=== PATIENT | female | born 1975 | race Asian ===

== ENCOUNTER 2016-02-25 01:07 | Inpatient (IN) | payer OTHER, MEDICAID ==
[2016-02-25] MEDS ORDERED: LACTATED RINGERS 1,000 ML IV SCH ×3 (02:00→05:00)
[2016-02-25] MEDS ORDERED: AMPICILLIN 2 GM in SODIUM CHLORIDE 0.9% MINIBAG 100 ML IV SCH (02:00)
[2016-02-25] MEDS ORDERED: SODIUM CHLORIDE FLUSH 0.9% 10 ML SYRINGE IVP ONE ×2 (02:10→16:25)
[2016-02-25] MEDS ORDERED: CITRIC ACID/SODIUM CITRATE 15 ML UDC PO SCH (02:54)
[2016-02-25] MEDS ORDERED: ceFAZolin 2 GM/50 ML 50 ML IV ONE (03:12)
[2016-02-25] MEDS ORDERED: LACTATED RINGERS 1,000 ML IV ONE ×2 (03:55→03:56)
[2016-02-25] MEDS ORDERED: MORPHINE PF 5 MG/10 ML AMP EP ONE (04:20)
[2016-02-25] MEDS ORDERED: ONDANSETRON 4 MG/2 ML VIAL IVP ONE (04:20)
[2016-02-25] MEDS ORDERED: fentaNYL 100 MCG/2 ML VIAL IVP ONE (04:20)
[2016-02-25] MEDS ORDERED: ACETAMINOPHEN 1,000 MG/100 ML VIAL IV ONE (04:20)
[2016-02-25] MEDS ORDERED: OXYTOCIN 10 UNIT/ML VIAL IV ONE (04:20)
[2016-02-25] MEDS ORDERED: PHENYLEPHRINE 10 MG/ML VIAL IV ONE (04:20)
[2016-02-25] MEDS ORDERED: BUPIVACAINE 0.25%-EPI 1:200000 PF 30 ML VIAL SUBQ ONE (04:32)
[2016-02-25] MEDS ORDERED: ONDANSETRON 4 MG/2 ML VIAL IVP PRN (04:49)
[2016-02-25] MEDS ORDERED: diphenhydrAMINE INJ 50 MG/ML VIAL IVP PRN (04:49)
[2016-02-25] MEDS ORDERED: oxyCOD/ACETAMIN 5 MG/325 MG TABLET PO PRN (04:49)
[2016-02-25] MEDS: OXYTOCIN/LACTATED RINGERS 250 ML IV SCH ×2 (05:49→10:39)
[2016-02-25] MEDS: ACETAMINOPHEN 500 MG TABLET PO SCH ×3 (09:48→22:04)
[2016-02-25] MEDS: DOCUSATE SODIUM 100 MG CAPSULE PO SCH ×2 (10:34→21:19)
[2016-02-25] MEDS: SIMETHICONE CHEW 80 MG TABLET PO SCH ×3 (13:45→21:19)
[2016-02-25] MEDS: oxyCODONE 5 MG TABLET PO PRN ×2 (17:40→23:56)
[2016-02-26] MEDS: oxyCODONE 5 MG TABLET PO PRN ×5 (04:05→21:53)
[2016-02-26] MEDS: ACETAMINOPHEN 500 MG TABLET PO SCH ×3 (06:16→21:52)
[2016-02-26] MEDS: DOCUSATE SODIUM 100 MG CAPSULE PO SCH ×2 (09:46→20:54)
[2016-02-26] MEDS: SIMETHICONE CHEW 80 MG TABLET PO SCH ×3 (09:46→18:08)
[2016-02-27] MEDS: oxyCODONE 5 MG TABLET PO PRN ×5 (04:25→20:56)
[2016-02-27] MEDS: ACETAMINOPHEN 500 MG TABLET PO SCH ×3 (06:08→19:25)
[2016-02-27] MEDS: DOCUSATE SODIUM 100 MG CAPSULE PO SCH ×2 (08:25→20:55)
[2016-02-27] MEDS: SIMETHICONE CHEW 80 MG TABLET PO SCH ×5 (08:26→20:56)
[2016-02-28] MEDS: oxyCODONE 5 MG TABLET PO PRN ×5 (01:56→19:42)
[2016-02-28] MEDS: ACETAMINOPHEN 500 MG TABLET PO SCH ×3 (03:47→20:01)
[2016-02-28] MEDS: DOCUSATE SODIUM 100 MG CAPSULE PO SCH ×2 (09:07→20:01)
[2016-02-28] MEDS: SIMETHICONE CHEW 80 MG TABLET PO SCH ×3 (09:07→19:43)
[2016-02-29] MEDS: SIMETHICONE CHEW 80 MG TABLET PO SCH ×2 (03:50→08:59)
[2016-02-29] MEDS: oxyCODONE 5 MG TABLET PO PRN ×2 (03:50→08:58)
[2016-02-29] MEDS: ACETAMINOPHEN 500 MG TABLET PO SCH (04:49)
[2016-02-29] MEDS: DOCUSATE SODIUM 100 MG CAPSULE PO SCH (08:59)
== END 2016-02-29 11:20 | disposition home or self-care (01) | DRG 766 ==
PROC: 10D00Z1 Extraction of Products of Conception, Low, Open Approach (ICD-10-PCS; principal; 2016-02-25 02:57)
DX: O42.92 Full-term premature rupture of membranes, unspecified as to length of time between rupture and onset of labor (principal); Z37.0 Single live birth; O34.211 Maternal care for low transverse scar from previous cesarean delivery; N85.8 Other specified noninflammatory disorders of uterus; O99.824 Streptococcus B carrier state complicating childbirth; Z3A.37 37 weeks gestation of pregnancy; Z88.8 Allergy status to other drugs, medicaments and biological substances

== ENCOUNTER 2017-05-18 08:24 | Outpatient (CLI) | payer MEDICAID ==
--- NOTE | 2017-05-19 11:29 | Mammography Report ---
DIGITAL SCREENING MAMMOGRAM: 05/18/2017 CLINICAL INDICATION: A 41-year-old with history of late childbearing, for baseline. TECHNIQUE: Routine CC and MLO projections were obtained of the breasts. Bilateral laterally exaggerated craniocaudal views. FINDINGS: The breasts demonstrate heterogeneously dense fibroglandular parenchyma bilaterally. A few punctate, typically benign calcifications are present. No suspicious masses, clustered microcalcifications, or regions of architectural distortion are identified. IMPRESSION: BENIGN FINDINGS. RECOMMENDATION: ROUTINE ANNUAL SCREENING UNLESS OTHERWISE CLINICALLY INDICATED. BIRADS CATEGORY 2-BENIGN FINDINGS. STANDARD QUALIFYING STATEMENTS: 1. This examination was reviewed with the aid of Computer-Aided Detection (CAD). 2. A negative or benign imaging report should not delay biopsy if clinically suspicious findings are present. Consider surgical consultation if warranted. More than 5% of cancers are not identified by imaging. 3. Dense breasts may obscure an underlying neoplasm. TD: 05/19/2017 11:28
== END 2017-05-18 08:25 | disposition home or self-care (01) ==
LOC: DI.N 08:24
PROVIDERS: ATTEND Registered Nurse
DX: Z12.31 Encounter for screening mammogram for malignant neoplasm of breast (principal)
CPT/HCPCS: 77067

== ENCOUNTER 2017-07-10 15:01 | Outpatient (CLI) | payer MEDICAID ==
[2017-07-18 11:11] LABS: HSV 2 DNA NOT DETECTED; SOURCE VAGINAL LESION
== END 2017-07-10 23:59 ==
LOC: LAB.R 15:01
PROVIDERS: ATTEND Nurse Practitioner Obstetrics & Gynecology
DX: N76.6 Ulceration of vulva (principal); N76.0 Acute vaginitis
CPT/HCPCS: 86695; 86696; 87480; 87510; 87529; 87660

== ENCOUNTER 2017-07-13 08:21 | Outpatient (CLI) | payer MEDICAID ==
--- NOTE | 2017-07-13 12:06 | XRAY Report ---
THREE VIEW LEFT MIDDLE FINGER: 07/13/2017 CLINICAL INDICATION: Pain. FINDINGS: AP, lateral, oblique views of the left middle finger demonstrate no evidence of fracture or dislocation. The joint spaces are preserved. No radiopaque foreign body is seen in the soft tissues. IMPRESSION: NORMAL LEFT MIDDLE FINGER. TD: 07/13/2017 11:37
== END 2017-07-13 08:22 | disposition home or self-care (01) ==
LOC: DI.N 08:21
PROVIDERS: ATTEND Nurse Practitioner
DX: M79.645 Pain in left finger(s) (principal)
CPT/HCPCS: 73140

== ENCOUNTER 2017-07-28 16:50 | Emergency (ER) | payer MEDICAID ==
[2017-07-28] MEDS ORDERED: SODIUM CHLORIDE 0.9% 1,000 ML IV ONE (17:11)
--- NOTE | 2017-07-28 17:11 | ED Physician Documentation ---
History of Present Illness - Stated complaint Stated Complaint: DIZZY/LIGHTHEADED - Chief complaint Chief Complaint: Cardiac - History obtained from History obtained from: Patient - History of Present Illness Timing: How many weeks ago (several) Pain level max: 0 Pain level now: 0 Improved by: nothing Worsened by: nothing - Additonal information Additional information: Patient is a 41-year-old female who presents to the emergency department stating that she feels intermittently lightheaded for the past several weeks. States these episodes last for 1-2 seconds at a time. Today they happened more consistently so she came for evaluation. Has not seen her doctor for this. Is not on any new medications. States occasionally drinks caffeine but not daily. States currently feels normal. Review of Systems Constitutional: denies: Fever, Chills Nose: denies: Rhinorrhea / runny nose Throat: denies: Sore throat Cardiac: reports: Palpitations (occasional). denies: Chest pain / pressure Respiratory: denies: Dyspnea, Cough GI: reports: Diarrhea. 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 - Present Medications Home Medications: Ambulatory Orders Medication Instructions Recorded Confirmed No Known Home Medications [No 09/19/15 07/28/17 Known Home Medications] - Allergies Allergies/Adverse Reactions: Allergies Allergy/AdvReac Type Severity Reaction Status Date / Time ibuprofen Allergy Mild Respiratory Verified 07/28/17 17:01 - Social History Does the pt smoke?: No Smoking Status: Never smoker Does the pt drink ETOH?: No Does the pt have substance abuse?: No - Immunizations Immunizations are current?: Yes PD ED PE NORMAL - Vitals Vital signs reviewed: Yes - General General: Alert and oriented X 3, No acute distress - HEENT HEENT: PERRL, EOMI (no nystagmus), Ears normal, Pharynx benign, Other (dry lips) - Neck Neck: Supple, no meningeal sign - Cardiac Cardiac: RRR, Strong equal pulses - Respiratory Respiratory: No respiratory distress, Clear bilaterally - Abdomen Abdomen: Soft, Non tender, Non distended - Back Back: No spinal TTP - Derm Derm: Warm and dry - Extremities Extremities: No edema, No calf tenderness / cord - Neuro Neuro: Alert and oriented X 3 - Psych Psych: Normal mood, Normal affect Results - Vitals Vitals: Vital Signs - 24 hr 07/28/17 07/28/17 07/28/17 16:58 17:33 18:26 Temperature 36.6 C 36.5 C Heart Rate 84 93 88 Respiratory 18 16 18 Rate Blood Pressure 157/92 H 153/91 H 148/88 H O2 Saturation 99 100 100 Oxygen O2 Source Room air - EKG (time done) 1704 Rate: Rate (enter#) (73) Rhythm: NSR [place]: Normal Intervals: Normal CT QRS: Normal Ischemia: Normal ST segments Computer interpretation: Agree with computer - Labs Labs: Laboratory Tests 07/28/17 07/28/17 07/28/17 17:15 17:15 17:15 WBC 6.0 RBC 4.20 Hgb 12.9 Hct 38.0 MCV 90.5 MCH 30.8 MCHC 34.1 RDW 12.8 Plt Count 274 MPV 6.9 L Neut # (Auto) 3.0 Lymph # (Auto) 2.4 [place] # (Auto) 0.4 Eos # (Auto) 0.3 Baso # (Auto) 0.0 Absolute Nucleated RBC 0.00 Nucleated RBC % 0.0 Sodium 135 Potassium 3.3 L Chloride 101 Carbon Dioxide 25 Anion Gap 9.0 BUN 18 Creatinine 0.6 Estimated GFR (MDRD) 110 Glucose 94 Calcium 9.1 Total Bilirubin 0.4 AST 19 ALT 15 Alkaline Phosphatase 34 L Troponin I < 0.04 Total Protein 7.5 Albumin 3.9 Globulin 3.6 Albumin/Globulin Ratio 1.1 Lipase 25 TSH Free T4 Urine Color Urine Clarity Urine pH Ur Specific [place] Urine Protein Urine Glucose (UA) Urine Ketones Urine Occult Blood Urine Nitrite Urine Bilirubin Urine Urobilinogen Ur Leukocyte Esterase Ur Microscopic Review Urine Culture Comments Urine HCG, Qual 07/28/17 07/28/17 17:15 17:42 WBC RBC Hgb Hct MCV MCH MCHC RDW Plt Count MPV Neut # (Auto) Lymph # (Auto) [place] # (Auto) Eos # (Auto) Baso # (Auto) Absolute Nucleated RBC Nucleated RBC % Sodium Potassium Chloride Carbon Dioxide Anion Gap BUN Creatinine Estimated GFR (MDRD) Glucose Calcium Total Bilirubin AST ALT Alkaline Phosphatase Troponin I Total Protein Albumin Globulin Albumin/Globulin Ratio Lipase TSH 2.43 Free T4 0.70 Urine Color YELLOW Urine Clarity CLEAR Urine pH 6.5 Ur Specific [place] 1.015 Urine Protein NEGATIVE Urine Glucose (UA) NEGATIVE Urine Ketones NEGATIVE Urine Occult Blood NEGATIVE Urine Nitrite NEGATIVE Urine Bilirubin NEGATIVE Urine Urobilinogen 0.2 (NORMAL) Ur Leukocyte Esterase NEGATIVE Ur Microscopic Review NOT INDICATED Urine Culture Comments NOT INDICATED Urine HCG, Qual NEGATIVE PD MEDICAL DECISION MAKING - ED course Complexity details: reviewed results, re-evaluated patient, considered differential, d/w patient ED course: Patient is a 41-year-old female with intermittent palpitations for the past several weeks. No acute findings on telemetry in the emergency department. She feels better after IV fluids. No acute laboratory abnormalities. Recommend that she follow-up with her doctor for an event monitor. Normal EKG. Ambulating with a steady gait. No evidence of pulmonary embolus, acute coronary syndrome. Patient counseled regarding signs and symptoms for which I believe and urgent re-evaluation would be necessary. Patient with good understanding of and agreement to plan and is comfortable going home at this time This document was made in part using voice recognition software. While efforts are made to proofread this document, sound alike and grammatical errors may occur. - Sepsis Event Vital Signs: Vital Signs - 24 hr 07/28/17 07/28/17 07/28/17 16:58 17:33 18:26 Temperature 36.6 C 36.5 C Heart Rate 84 93 88 Respiratory 18 16 18 Rate Blood Pressure 157/92 H 153/91 H 148/88 H O2 Saturation 99 100 100 Oxygen O2 Source Room air Departure - Departure Disposition: 01 Home, Self Care Clinical Impression: Lightheadedness, Palpitations Condition: Good Instructions: ED Palpitations Follow-Up: your,doctor in 1 week [Other] Comments: The cause of your symptoms is unclear today. It is important that you follow- up with your doctor for further evaluation and care. You may benefit from a ekg monitor tech to monitor your heart so when the symptoms occur we can track them on telemetry. your doctor can order this for you. Your telemetry did not show any acute abnormalities today. Discharge Date/Time: 07/28/17 18:24
[2017-07-28 17:35] LABS: BASOPHILS % (AUTO) 0.7 %; EOSINOPHILS # (AUTO) 0.3 10^3/uL (0.0-0.7); EOSINOPHILS % (AUTO) 4.4 %; HGB - HEMOGLOBIN 12.9 g/dL (12.0-16.0); LYMPHOCYTES # (AUTO) 2.4 10^3/uL (1.5-3.5); LYMPHOCYTES % (AUTO) 39.6 %; MEAN CORPUSCULAR HEMOGLOBIN 30.8 pg (27.0-31.0); MEAN CORPUSCULAR HGB CONC 34.1 g/dL (32.0-36.0); MEAN CORPUSCULAR VOLUME 90.5 fL (81.0-99.0); MEAN PLATELET VOLUME 6.9 fL (7.9-10.8); MONOCYTES # (AUTO) 0.4 10^3/uL (0.0-1.0); NEUTROPHILS % (AUTO) 49.3 %; PLT - PLATELET COUNT 274 10^3/uL (130-450); RED CELL DISTRIBUTION WIDTH 12.8 % (12.0-15.0)
[2017-07-28 17:45] LABS: ALBUMIN 3.9 g/dL (3.2-5.5); ALBUMIN/GLOBULIN RATIO 1.1 (1.0-2.2); BILIRUBIN,TOTAL 0.4 mg/dL (0.2-1.0); CALCIUM 9.1 mg/dL (8.5-10.3); CREATININE 0.6 mg/dL (0.4-1.0); TOTAL PROTEIN 7.5 g/dL (6.7-8.2)
[2017-07-28 17:52] LABS: BILIRUBIN,URINE NEGATIVE (NEGATIVE); GLUCOSE, URINE (UA) NEGATIVE (NEGATIVE); KETONES,URINE (UA) NEGATIVE (NEGATIVE); LEUKOCYTE ESTERASE, URINE NEGATIVE (NEGATIVE); NITRITE,URINE NEGATIVE (NEGATIVE); OCCULT BLOOD,URINE NEGATIVE (NEGATIVE); PH,URINE 6.5 PH (5.0-7.5); PROTEIN,URINE NEGATIVE (NEGATIVE); UROBILINOGEN,URINE 0.2 (NORMAL) E.U./dL (NORMAL)
[2017-07-28 17:55] LABS: CLARITY,URINE CLEAR (CLEAR); HCG UR QUAL NEGATIVE
[2017-07-28 18:04] LABS: THYROID STIMULATING HORMONE 2.43 uIU/mL (0.34-5.60)
[2017-07-28 18:06] LABS: FREE T4 (FREE THYROXINE) 0.7 ng/dL (0.58-1.64)
[2017-07-28 18:28] VITALS: BP 148/88
== END 2017-07-28 18:24 | disposition home or self-care (01) ==
LOC: ED 16:50
DX: R42 Dizziness and giddiness (principal); R00.2 Palpitations; R19.7 Diarrhea, unspecified
CPT/HCPCS: 36415; 80053; 81001; 81003; 81025; 83690; 84439; 84443; 84484; 85025; 87086; 93005; 96360; 99283; 99284

== ENCOUNTER 2017-08-10 08:13 | Outpatient (CLI) | payer MEDICAID ==
[2017-08-10 12:50] LABS: CREATININE 0.5 mg/dL (0.4-1.0)
== END 2017-08-10 08:14 | disposition home or self-care (01) ==
LOC: LAB.N 08:13
PROVIDERS: ATTEND Nurse Practitioner
DX: E87.6 Hypokalemia (principal)
CPT/HCPCS: 36415; 80048

== ENCOUNTER → 2017-08-11 | Outpatient (CLI) | payer MEDICAID | LOC: RT.N 09:13 | PROVIDERS: ATTEND Nurse Practitioner | DX: R42 Dizziness and giddiness (principal); R00.2 Palpitations | CPT/HCPCS: 93005 ==

== ENCOUNTER 2017-09-29 10:19 | Emergency (ER) | payer MEDICAID ==
--- NOTE | 2017-09-29 12:11 | ED Physician Documentation ---
PD HPI FOCAL NEURO - Stated complaint Stated Complaint: LT UPPER LIP NUMBNESS - Chief complaint Chief Complaint: General - History obtained from History obtained from: Patient - History of Present Illness Timing - onset: Yesterday (Since yesterday she has had numbness focused on the left face around the upper lip, but involves everything from the forehead down to the jawline. She also notes partial numbness of the fourth and fifth fingers of the hand on the same side. She denies weakness. She notes for the last couple of months she has had intermittent dizziness which she describes as feeling like she is walking on a cloud. It happens unpredictably. There is no vertigo with it. She has had ringing of her right ear as well. 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 - Present Medications Home Medications: Ambulatory Orders Medication Instructions Recorded Confirmed No Known Home Medications [No 09/19/15 07/28/17 Known Home Medications] - Allergies Allergies/Adverse Reactions: Allergies Allergy/AdvReac Type Severity Reaction Status Date / Time ibuprofen Allergy Mild Respiratory Verified 09/29/17 10:30 - Social History Does the pt smoke?: No Smoking Status: Never smoker Does the pt drink ETOH?: No Does the pt have substance abuse?: No - Family History Family history: reports: Non contributory - Immunizations Immunizations are current?: Yes - POLST Patient has POLST: No PD ED PE NORMAL - Vitals Vital signs reviewed: Yes - General General: Alert and oriented X 3, No acute distress - HEENT HEENT: PERRL, EOMI - Neck Neck: Supple, no meningeal sign, No bony TTP - Cardiac Cardiac: RRR, No murmur - Respiratory Respiratory: No respiratory distress, Clear bilaterally - Abdomen Abdomen: Normal bowel sounds, Soft, Non tender - Back Back: No CVA TTP, No spinal TTP - Derm Derm: Normal color, Warm and dry - Extremities Extremities: No edema, No calf tenderness / cord - Neuro Neuro: Alert and oriented X 3, Normal speech NIHSS - Time Time: 12:02 - Level of Consciousness Level of consciousness: (0) Alert, Keenly responsive LOC Questions: (0) Answers both Q's correct LOC Commands: (0) Performs both correctly - Gaze Best Gaze: (0) Normal - Visual Visual: (0) No loss - Facial Palsy Facial Palsy: (0) Normal, symmetrical movement - Motor Arms (both separate) Motor Arm (right): (0) No drift Motor Arm (left): (0) No drift - Motor Legs (both separate) Motor Leg (right): (0) No drift Motor Leg (left): (0) No drift - Limb Ataxia Limb Ataxia: (0) Absent - Sensory Sensory: (1) [id number] loss (Throughout the left face, she does not notice anything in the left hand when I am testing it though.) - Best Language Best Language: (0) No aphasia - Dysarthria Dysarthria: (0) Normal - Extinction and Inattention (formally neg Extinction and inattention: (0) No abnormality - Total Score/Results Total Score/Result: 1 Results - Vitals Vitals: Vital Signs - 24 hr 09/29/17 09/29/17 10:28 15:11 Temperature 36.3 C L 36.6 C Heart Rate 87 74 Respiratory 18 18 Rate Blood Pressure 150/84 H 132/78 H O2 Saturation 100 99 Oxygen O2 Source Room air - Labs Labs: Laboratory Tests 09/29/17 09/29/17 12:20 12:20 WBC 6.7 RBC 4.13 L Hgb 12.9 Hct 36.8 L MCV 89.3 MCH 31.2 H MCHC 34.9 RDW 12.9 Plt Count 270 MPV 7.1 L Neut # (Auto) 4.3 Lymph # (Auto) 1.9 [place] # (Auto) 0.3 Eos # (Auto) 0.2 Baso # (Auto) 0.0 Absolute Nucleated RBC 0.00 Nucleated RBC % 0.0 Sodium 137 Potassium 3.3 L Chloride 106 Carbon Dioxide 23 Anion Gap 8.0 BUN 15 Creatinine 0.5 Estimated GFR (MDRD) 135 Glucose 97 Calcium 8.9 Total Bilirubin 0.8 AST 18 ALT 17 Alkaline Phosphatase 35 L Total Protein 7.5 Albumin 4.2 Globulin 3.3 Albumin/Globulin Ratio 1.3 Lipase 26 - Rads (name of study) MRI Brain Radiology: EMP read contemporaneously (normal) PD MEDICAL DECISION MAKING - ED course ED course: 31-year-old woman with some vague neurologic some but more acutely facial numbness which also affects that side of the body which is concerning for stroke or mass lesion, MRI was needed and negative for acute issue which is reassuring. - Sepsis Event Vital Signs: Vital Signs - 24 hr 09/29/17 09/29/17 10:28 15:11 Temperature 36.3 C L 36.6 C Heart Rate 87 74 Respiratory 18 18 Rate Blood Pressure 150/84 H 132/78 H O2 Saturation 100 99 Oxygen O2 Source Room air Departure - Departure Disposition: 01 Home, Self Care Clinical Impression: Facial numbness Condition: Good Record reviewed to determine appropriate education?: Yes Comments: Because of your symptoms is not clear, but you have a normal MRI which precludes stroke, ruptured aneurysm, or tumor as the cause. Follow-up with your doctor next week. Your blood pressure was elevated today on check into the emergency department. This does not mean that you have hypertension, it is a common phenomenon to come to the emergency department and have elevated blood pressure. I recommend that you see your primary care physician within the week to have it rechecked when you are feeling better. Discharge Date/Time: 09/29/17 15:11
[2017-09-29 12:30] LABS: BASOPHILS % (AUTO) 0.5 %; EOSINOPHILS # (AUTO) 0.2 10^3/uL (0.0-0.7); EOSINOPHILS % (AUTO) 2.3 %; HGB - HEMOGLOBIN 12.9 g/dL (12.0-16.0); LYMPHOCYTES # (AUTO) 1.9 10^3/uL (1.5-3.5); MEAN CORPUSCULAR HEMOGLOBIN 31.2 pg (27.0-31.0); MEAN CORPUSCULAR HGB CONC 34.9 g/dL (32.0-36.0); MEAN CORPUSCULAR VOLUME 89.3 fL (81.0-99.0); MEAN PLATELET VOLUME 7.1 fL (7.9-10.8); MONOCYTES # (AUTO) 0.3 10^3/uL (0.0-1.0); MONOCYTES % (AUTO) 4.9 %; NEUTROPHILS # (AUTO) 4.3 10^3/uL (1.5-6.6); NEUTROPHILS % (AUTO) 64.3 %; PLT - PLATELET COUNT 270 10^3/uL (130-450); RED BLOOD COUNT 4.13 10^6/uL (4.20-5.40); RED CELL DISTRIBUTION WIDTH 12.9 % (12.0-15.0); WHITE BLOOD COUNT 6.7 x10^3/uL (4.8-10.8)
[2017-09-29 12:40] LABS: ALBUMIN 4.2 g/dL (3.2-5.5); ALBUMIN/GLOBULIN RATIO 1.3 (1.0-2.2); BILIRUBIN,TOTAL 0.8 mg/dL (0.2-1.0); CALCIUM 8.9 mg/dL (8.5-10.3); CREATININE 0.5 mg/dL (0.4-1.0); TOTAL PROTEIN 7.5 g/dL (6.7-8.2)
--- NOTE | 2017-09-29 14:53 | MRI Report ---
Procedure Date: 09/29/2017 Accession Number: [id number] / [id number] Procedure: MRI - Brain W/O CPT Code: FULL RESULT: EXAM: MRI BRAIN WITHOUT CONTRAST EXAM DATE: 09/29/2017 02:39 PM. CLINICAL HISTORY: Left facial and hand numbness. COMPARISON: None. TECHNIQUE: Multiplanar, multisequence T1-weighted and fluid-sensitive MR sequences of the brain were performed. Sequences optimized for routine evaluation. Other: None. IV Contrast: None. FINDINGS: (Study is somewhat limited by motion artifact.) Brain Volume: Normal for age. Parenchyma/Dura: No mass, acute infarct or hemorrhage. No significant park matter or white matter signal abnormality is appreciated. Ventricles/Cisterns: No hydrocephalus. No abnormal extra-axial fluid collection or hemorrhage. Orbits: Symmetric and unremarkable. Sella [place]: The pituitary gland, cavernous sinuses, suprasellar cistern and optic chiasm are unremarkable. IAC: Symmetric and unremarkable. Vasculature: Normal signal flow void is seen in the major arterial structures at the skull base. Sinuses: No acute appearing sinus disease. Mild mucosal thickening is seen inferiorly in the maxillary antra. Bones: No focal pathologic appearing marrow signal changes. Other: None. IMPRESSION: 1. Negative noncontrast MRI of the brain. No acute abnormality. No infarct, mass, or hemorrhage. RADIA
[2017-09-29 16:27] VITALS: BP 132/78
== END 2017-09-29 15:11 | disposition home or self-care (01) ==
LOC: ED 10:19
DX: R20.0 Anesthesia of skin (principal); R03.0 Elevated blood-pressure reading, without diagnosis of hypertension
CPT/HCPCS: 36415; 70551; 80053; 83690; 85025; 99283

== ENCOUNTER 2018-05-18 15:32 | Outpatient (CLI) | payer MEDICAID ==
--- NOTE | 2018-05-21 08:52 | Mammography Report ---
Reason: MAMMOGRAPHIC SCREENING FOR BREAST CANCER Procedure Date: 05/18/2018 Accession Number: [id number] / [id number] Procedure: MGN - Screening Mammo Dig Bilat CPT Code: FULL RESULT: EXAM: Screening Mammo Dig Bilat DATE: 05/18/2018 3:49PM CLINICAL HISTORY: Routine screening. No reported personal or family history of breast cancer. TECHNIQUE: (B) - Bilateral Bilateral CC and MLO views were obtained. COMPARISON: 05/18/2017 FINDINGS: Bilateral breasts: No suspicious masses, clustered microcalcifications, or regions of architectural distortion are identified. PARENCHYMAL PATTERN: (D) - The breasts demonstrate heterogeneously dense fibroglandular parenchyma bilaterally. IMPRESSION: Negativeexamination RECOMMENDATION: (ANNUAL) - Recommend routine annual screening mammography. BI-RADS CATEGORY: (1) - Negative STANDARD QUALIFYING STATEMENTS: 1. This examinationwas reviewed with the aid of Computer-Aided Detection (CAD). 2. A negative or benign imaging report should not preclude biopsy if clinically suspicious findings are present. 3. Dense breasts mayobscure an underlying neoplasm. 4. This examination was reviewed without the aid of 3D breast imaging (tomosynthesis).
== END 2018-05-18 15:33 | disposition home or self-care (01) ==
LOC: DI.N 15:32
PROVIDERS: ATTEND Nurse Practitioner
DX: Z12.31 Encounter for screening mammogram for malignant neoplasm of breast (principal)
CPT/HCPCS: 77067

== ENCOUNTER 2019-03-21 15:01 | Outpatient (CLI) | payer MEDICAID ==
[2019-03-21 19:10] LABS: HB2 TOTAL 11.9 g/dL; HEMOGLOBIN A1C 0.45 g/dL; HEMOGLOBIN A1C % 5.6 % (4.6-6.2)
== END 2019-03-21 23:59 | disposition home or self-care (01) ==
LOC: LAB.N 15:01
PROVIDERS: ATTEND Nurse Practitioner Gerontology
DX: R73.9 Hyperglycemia, unspecified (principal)
CPT/HCPCS: 36415; 83036

== ENCOUNTER 2019-05-10 15:40 | Outpatient (CLI) | payer MEDICAID ==
--- NOTE | 2019-05-14 16:10 | Mammography Report ---
Reason: ROUTINE MAMMO Procedure Date: 05/10/2019 Accession Number: [id number] / [id number] Procedure: MGN - Screening Mammo w/Terrance CPT Code: Final Report FULL RESULT: EXAM: Screening Mammo w/Terrance DATE: 05/10/2019 4:09 PM CLINICAL HISTORY: Routine screening. Late childbearing TECHNIQUE: (B) - Bilateral CC and MLO views were obtained. COMPARISON: 05/18/2018, 05/18/2017 PARENCHYMAL PATTERN: (D) - The breasts demonstrate heterogeneously dense fibroglandular parenchyma bilaterally. FINDINGS: No significant interval change. There are no suspicious masses, calcifications, or areas of distortion. IMPRESSION: Negative examination. BI-RADS category 1. RECOMMENDATION: (ANNUAL) - Recommend routine annual screening mammography. BI-RADS CATEGORY: (1) - Negative. STANDARD QUALIFYING STATEMENTS: 1. This examination was not reviewed with the aid of Computer-Aided Detection (CAD). 2. A negative or benign imaging report should not preclude biopsy if clinically suspicious findings are present. 3. Dense breasts may obscure an underlying neoplasm. 4. This examination was reviewed with the aid of 3D breast imaging (tomosynthesis).
== END 2019-05-10 15:41 | disposition home or self-care (01) ==
LOC: DI.N 15:40
DX: Z12.31 Encounter for screening mammogram for malignant neoplasm of breast (principal)
CPT/HCPCS: 77063; 77067

== ENCOUNTER 2019-06-28 10:25 | Outpatient (CLI) | payer MEDICAID, OTHER ==
[2019-06-28 13:18] LABS: BASOPHILS % (AUTO) 0.7 %; EOSINOPHILS # (AUTO) 0.2 10^3/uL (0.0-0.7); EOSINOPHILS % (AUTO) 4.8 %; HGB - HEMOGLOBIN 12.3 g/dL (12.0-16.0); LYMPHOCYTES # (AUTO) 1.7 10^3/uL (1.5-3.5); MEAN CORPUSCULAR HGB CONC 33.2 g/dL (32.0-36.0); MEAN CORPUSCULAR VOLUME 93.2 fL (81.0-99.0); MEAN PLATELET VOLUME 9.7 fL (7.9-10.8); MONOCYTES # (AUTO) 0.3 10^3/uL (0.0-1.0); MONOCYTES % (AUTO) 5.9 %; NEUTROPHILS # (AUTO) 2.4 10^3/uL (1.5-6.6); NEUTROPHILS % (AUTO) 52.4 %; PLT - PLATELET COUNT 263 10^3/uL (130-450); RED BLOOD COUNT 3.97 10^6/uL (4.20-5.40); RED CELL DISTRIBUTION WIDTH 12.2 % (12.0-15.0); WHITE BLOOD COUNT 4.6 x10^3/uL (4.8-10.8)
[2019-06-28 13:57] LABS: ALBUMIN 4.2 g/dL (3.2-5.5); ALBUMIN/GLOBULIN RATIO 1.4 (1.0-2.2); BILIRUBIN,TOTAL 0.5 mg/dL (0.2-1.0); CALCIUM 8.7 mg/dL (8.5-10.3); CREATININE 0.6 mg/dL (0.4-1.0); TOTAL PROTEIN 7.1 g/dL (6.7-8.2)
== END 2019-06-28 23:59 | disposition home or self-care (01) ==
LOC: LAB.WCP 10:25
PROVIDERS: ATTEND Physician Assistant Medical
DX: Z51.81 Encounter for therapeutic drug level monitoring (principal)
CPT/HCPCS: 36415; 80053; 85025

== ENCOUNTER 2019-09-12 08:00 | Outpatient (CLI) | payer OTHER ==
[2019-09-12 19:38] LABS: ALBUMIN 4.2 g/dL (3.2-5.5); ALBUMIN/GLOBULIN RATIO 1.4 (1.0-2.2); BILIRUBIN,TOTAL 0.7 mg/dL (0.2-1.0); CALCIUM 8.9 mg/dL (8.5-10.3); CREATININE 0.6 mg/dL (0.4-1.0); TOTAL PROTEIN 7.3 g/dL (6.7-8.2)
== END 2019-09-12 23:59 | disposition home or self-care (01) ==
LOC: LAB.WCP 08:00
PROVIDERS: ATTEND Family Medicine
DX: B35.1 Tinea unguium (principal)
CPT/HCPCS: 36415; 80053

== ENCOUNTER 2020-03-23 08:00 | Outpatient (CLI) | payer OTHER ==
[2020-03-24 20:25] LABS: THYROID STIMULATING HORMONE 1.88 uIU/mL (0.34-5.60)
[2020-03-24 20:27] LABS: FREE T4 (FREE THYROXINE) 0.82 ng/dL (0.58-1.64)
== END 2020-03-23 23:59 ==
LOC: LAB.WCP 08:00
PROVIDERS: ATTEND Psychiatry & Neurology Neurology
DX: R61 Generalized hyperhidrosis (principal)
CPT/HCPCS: 36415; 84439; 84443

== ENCOUNTER 2020-03-23 15:22 | Outpatient (CLI) | payer OTHER ==
--- NOTE | 2020-03-23 16:51 | XRAY Report ---
PROCEDURE: Hip 1 View LT INDICATIONS: LEFT HIP PAIN TECHNIQUE: 2 views of the hip were acquired. COMPARISON: None FINDINGS: Bones: No fractures or dislocations. No suspicious bony lesions. The visualized pelvic ring appear s intact. Minimal bilateral degenerative hip joint space narrowing. No erosions. Soft tissues: No suspicious soft tissue calcifications or masses. IMPRESSION: No acute osseous process. If clinical concern persists, CT or MRI may be obtained for additional eval uation. Minimal bilateral degenerative hip joint narrowing suggestive early osteoarthritis. Reviewed by: Malissa Bass MD on 03/23/2020 4:49 PM PST Approved by: Malissa Bass MD on 03/23/2020 4:49 PM PST Station ID: [id number]
== END 2020-03-23 23:59 | disposition home or self-care (01) ==
LOC: DI.WCP 15:22
PROVIDERS: ATTEND Family Medicine
DX: M25.552 Pain in left hip (principal)

== ENCOUNTER 2021-02-23 09:04 | Outpatient (CLI) | payer OTHER ==
[2021-02-23 12:16] LABS: BASOPHILS % (AUTO) 0.8 %; BILIRUBIN,URINE NEGATIVE (NEGATIVE); EOSINOPHILS # (AUTO) 0.2 10^3/uL (0.0-0.7); EOSINOPHILS % (AUTO) 4.9 %; GLUCOSE, URINE (UA) NEGATIVE (NEGATIVE); KETONES,URINE (UA) NEGATIVE (NEGATIVE); LEUKOCYTE ESTERASE, URINE NEGATIVE (NEGATIVE); LYMPHOCYTES # (AUTO) 1.8 10^3/uL (1.5-3.5); LYMPHOCYTES % (AUTO) 37.3 %; MEAN CORPUSCULAR HEMOGLOBIN 31.1 pg (27.0-31.0); MEAN CORPUSCULAR HGB CONC 33.3 g/dL (32.0-36.0); MEAN CORPUSCULAR VOLUME 93.3 fL (81.0-99.0); MEAN PLATELET VOLUME 9.2 fL (7.9-10.8); MONOCYTES # (AUTO) 0.4 10^3/uL (0.0-1.0); MONOCYTES % (AUTO) 8.1 %; NEUTROPHILS # (AUTO) 2.3 10^3/uL (1.5-6.6); NEUTROPHILS % (AUTO) 48.9 %; NITRITE,URINE NEGATIVE (NEGATIVE); OCCULT BLOOD,URINE NEGATIVE (NEGATIVE); PLT - PLATELET COUNT 301 10^3/uL (130-450); PROTEIN,URINE NEGATIVE (NEGATIVE); RED BLOOD COUNT 4.18 10^6/uL (4.20-5.40); RED CELL DISTRIBUTION WIDTH 12.2 % (12.0-15.0); UROBILINOGEN,URINE 0.2 (NORMAL) E.U./dL (NORMAL); WHITE BLOOD COUNT 4.7 x10^3/uL (4.8-10.8)
[2021-02-23 12:18] LABS: CLARITY,URINE CLEAR (CLEAR)
[2021-02-23 12:25] LABS: BACTERIA,URINE Few /HPF (None Seen); RBC,URINE 0-5 /HPF (0-5); SQUAMOUS EPITHELIAL CELL,UR FEW Squamous (<= Few); WBC,URINE 0-3 /HPF (0-5)
[2021-02-23 12:37] LABS: ALBUMIN 4.1 g/dL (3.2-5.5); ALBUMIN/GLOBULIN RATIO 1.2 (1.0-2.2); BILIRUBIN,TOTAL 0.7 mg/dL (0.2-1.0); CREATININE 0.6 mg/dL (0.4-1.0); POTASSIUM 3.5 mmol/L (3.5-5.0); TOTAL PROTEIN 7.4 g/dL (6.7-8.2)
[2021-02-23 19:17] LABS: H. PYLORIS ANTIGEN STL NEGATIVE (Negative)
== END 2021-02-23 09:05 | disposition home or self-care (01) ==
LOC: LAB.N 09:04
PROVIDERS: ATTEND Nurse Practitioner
DX: R10.9 Unspecified abdominal pain (principal); R19.4 Change in bowel habit
CPT/HCPCS: 36415; 80053; 81001; 82150; 83516; 83690; 85025; 87086; 87338

== ENCOUNTER 2023-08-09 07:16 | Outpatient (CLI) | payer OTHER ==
[2023-08-09 11:50] LABS: BASOPHILS % (AUTO) 0.8 %; EOSINOPHILS # (AUTO) 0.3 10^3/uL (0.0-0.7); EOSINOPHILS % (AUTO) 6.3 %; HCT - HEMATOCRIT 39.7 % (37.0-47.0); HGB - HEMOGLOBIN 13.1 g/dL (12.0-16.0); LYMPHOCYTES # (AUTO) 1.9 10^3/uL (1.5-3.5); LYMPHOCYTES % (AUTO) 35.7 %; MEAN CORPUSCULAR HEMOGLOBIN 30.7 pg (27.0-31.0); MEAN PLATELET VOLUME 9.3 fL (7.9-10.8); MONOCYTES # (AUTO) 0.4 10^3/uL (0.0-1.0); MONOCYTES % (AUTO) 7.2 %; NEUTROPHILS # (AUTO) 2.6 10^3/uL (1.5-6.6); NEUTROPHILS % (AUTO) 49.8 %; PLT - PLATELET COUNT 265 10^3/uL (130-450); RED BLOOD COUNT 4.27 10^6/uL (4.20-5.40); RED CELL DISTRIBUTION WIDTH 12.6 % (12.0-15.0); WHITE BLOOD COUNT 5.3 x10^3/uL (4.8-10.8)
[2023-08-09 12:02] LABS: FECAL OCCULT BLOOD (FIT) NEGATIVE (NEGATIVE); H. PYLORIS ANTIGEN STL NEGATIVE (Negative)
[2023-08-09 12:04] LABS: ALBUMIN 4.2 g/dL (3.2-5.5); ALBUMIN/GLOBULIN RATIO 1.6 (1.0-2.2); ALKALINE PHOSPHATASE 48 IU/L (42-121); ALT ALANINE AMINOTRANSFERASE 17 IU/L (10-60); AST ASPARTATE AMINOTRANSFERASE 17 IU/L (10-42); BILIRUBIN,TOTAL 0.6 mg/dL (0.2-1.0); BUN - BLOOD UREA NITROGEN 16 mg/dL (6-20); CALCIUM 9.5 mg/dL (8.5-10.3); CARBON DIOXIDE - CO2 25 mmol/L (21-32); CHLORIDE 109 mmol/L (101-111); CHOL/HDL RATIO 3.5 (<4.4); CHOLESTEROL 219 mg/dL; CREATININE 0.7 mg/dL (0.6-1.3); GFR - MDRD 89 (>89); GLUCOSE 89 mg/dL (74-104); HDL CHOLESTEROL 63 mg/dL; LDL CHOLESTEROL,CALCULATED 122 mg/dL; LDL/HDL RATIO 1.9 (<4.4); POTASSIUM 4.1 mmol/L (3.5-4.5); SODIUM 140 mmol/L (135-145); TOTAL PROTEIN 6.9 g/dL (6.4-8.9); TRIGLYCERIDES 168 mg/dL (48-352); VLDL CHOLESTEROL 34 mg/dL
[2023-08-09 12:21] LABS: THYROID STIMULATING HORMONE 2.05 uIU/mL (0.34-5.60)
== END 2023-08-09 07:17 | disposition home or self-care (01) ==
LOC: LAB.N 07:16
PROVIDERS: ATTEND Nurse Practitioner
DX: R53.83 Other fatigue (principal); Z13.220 Encounter for screening for lipoid disorders; Z12.11 Encounter for screening for malignant neoplasm of colon; R10.13 Epigastric pain
CPT/HCPCS: 36415; 80053; 80061; 82274; 83721; 84443; 85025; 87338